=== PATIENT | female | born 2000 | race Caucasian/White ===

== ENCOUNTER 2022-09-30 04:45 | Emergency (ER) | payer OTHER ==
[2022-09-30] MEDS ORDERED: Lidocaine Viscous Sol 2% 15 ml UD Cup ONE (05:10)
[2022-09-30] MEDS ORDERED: Mag-Al Plus 1200 MG/1200 MG/120 MG/30 ML UDCUP ONE (05:10)
[2022-09-30] MEDS ORDERED: fentaNYL 50 mcg/mL 1 mL Vial ONE (05:53)
[2022-09-30 06:04] LABS: #Basophils 0.1 thou/uL (0.0-0.2); #Eosinphils 0.2 thou/uL (0.0-0.7); #Lymphocytes 2.5 thou/uL (1.20-3.40); #Monocytes 0.5 thou/uL (0.11-0.59); #Neutrophils 7.2 thou/uL (1.40-6.50); %Basophils 0.5 % (0.0-1.0); %Eosinophils 1.7 % (0.0-10.0); %Monocytes 4.6 % (0.0-10.0); %Neutrophils 69.1 % (42.0-75.0); Hemoglobin 14.9 g/dL (12.0-16.0); Mean Corpuscular Hemoglobin 29.6 pg (27.0-31.0); Mean Corpuscular Volume 89.7 fl (78.0-98.0); Mean Platelet Volume 6.7 fL (7.4-10.4); Platelet Count 226 10x3/uL (130-400); RBC Distribution Width 12.3 % (11.5-14.5); Red Blood Cell (RBC) Count 5.03 mill/uL (4.20-5.40); White Blood Cell (WBC) Count 10.4 10x3/uL (4.8-10.8)
[2022-09-30 06:17] LABS: ALT (SGPT) 27 U/L (8-55); AST (SGOT) 20 U/L (5-34); Albumin 4.1 g/dL (3.5-5.0); Alkaline Phosphatase 74 U/L (40-110); Anion Gap 11 mmol/L (10-20); BUN (Urea Nitrogen) 9 mg/dL (7.0-18.7); Bilirubin, Total 0.2 mg/dL (0.2-1.2); Calc. Creatinine Clearance 0 mL/min (70-130); Calcium 9.5 mg/dL (7.8-10.44); Carbon Dioxide 29 mmol/L (22-29); Chloride 106 mmol/L (98-107); Estimated GFR 103; Globulin 2.6 g/dL (2.4-3.5); Glucose 96 mg/dL (70-105); Lipase 20 U/L (8-78); Protein, Total 6.7 g/dL (6.0-8.3); Sodium 142 mmol/L (136-145)
== END 2022-09-30 07:16 | disposition short-term general hospital (02) ==
LOC: BURERS 04:45
DX: O90.89 Other complications of the puerperium, not elsewhere classified (principal); R10.13 Epigastric pain
CPT/HCPCS: 80053; 83690; 85025; 96374; J3010